=== PATIENT | male | born 1990 | race Caucasian/White ===

== ENCOUNTER 2018-08-26 13:16 | Emergency (ER) | payer OTHER ==
[~2018-08-26] VITALS: Ht 188 cm; Wt 90.7 kg
[~2018-08-26 13:16] MED LIST: DOXYCYCLINE 10100 M1 PO; NORCO 5-325 TA1 EAC1 PO; PREDNISONE 10 M10 MG PO; TRAMADOL 50 MG50 MG PO; TRIAMCINOLONE A80 G2 TOP
[2018-08-26] MEDS ORDERED: VOLTAREN GEL 1100 G2 TOP (14:00)
[2018-08-26 14:21] VITALS: BP 136/72
== END 2018-08-26 14:22 | disposition home or self-care (01) ==
LOC: M.ERS 13:16
DX: S76.192A Other specified injury of left quadriceps muscle, fascia and tendon, initial encounter (principal); F17.210 Nicotine dependence, cigarettes, uncomplicated; Z88.0 Allergy status to penicillin; W51.XXXA Accidental striking against or bumped into by another person, initial encounter; Y93.89 Activity, other specified; Y92.89 Other specified places as the place of occurrence of the external cause; Y99.8 Other external cause status

== ENCOUNTER 2020-05-12 22:34 | Emergency (ER) | payer OTHER ==
[~2020-05-12] VITALS: Ht 188 cm; Wt 83.9 kg
[~2020-05-12 22:34] MED LIST changes: +VOLTAREN GEL 1100 G2 TOP
[2020-05-13 00:30] VITALS: BP 119/74
== END 2020-05-13 00:32 | disposition home or self-care (01) ==
LOC: M.ERS 22:34
DX: S61.217A Laceration without foreign body of left little finger without damage to nail, initial encounter (principal); Z88.0 Allergy status to penicillin; W26.0XXA Contact with knife, initial encounter; Y93.89 Activity, other specified; Y92.89 Other specified places as the place of occurrence of the external cause; Y99.8 Other external cause status